=== PATIENT | female | born 1985 | race Caucasian/White ===

== ENCOUNTER 2024-08-09 08:20 | Outpatient (RCR) | payer BC, SELFPAY ==
--- NOTE | 2024-08-09 09:18 | PTOPEVAL1 ---
Assessment and note entered by Justice Thomson Evaluation Information Assessment Status Evaluation ICD-10 Condition Codes (PT) Pain in left knee M25.562 Onset 06/22/24 Subjective Information Pt. reports that she injured the left knee on . She reports that she was bowling that evening and noticed slight pain. She reports that she woke the next morning and noticed that the left knee was swollen. She underwent MRI which revealed a cartilage injury in the left knee. She states that the ortho suggested starting with PT and she will revisit following PT. She reports that pain is increased with bending, squatting and walking. She reports stairs are also difficulty. She states that she works from home and can continue to work despite her pain. she states that pain will increase at night on occasion. She states that she is placing a pillow under the knee at night for comfort on occasion. She reports that her goal for therapy is to reduce pain and walk normal. Reported Pain Level Pain Score 5: Self Report Assessment PT Clinical Summary Pt. is a 39 year old female who enters the clinic with left knee pain due to interarticular damage. She presents with decreased ROM , impaired strength, impaired gait and functional decline. Continued skilled PT is indicated in order to improve these areas to allow the pt. to be able to achieve her goal of decreased pain and normal ambulation. Plan of Care Interventions Electrical Stimulation,Gait Training,Hot Pack/Cold Pack,Manual Therapy,Neuro Re-education,Patient/ Caregiver Educati,Therapeutic Activities, Therapeutic Exercise PT Services Indicated Yes Treatment Frequency and 2x/week x 10 visits Duration These treatments will address the objective and functional deficits as defined above. The patient will be advanced safely and appropriately in order for the patient to progress towards his/her prior level of function. Additional exercises will be introduced and as well as a comprehensive home exercise program upon discharge, if needed, ?to ensure carryover of functional gains achieved in the clinic. This treatment plan has been reviewed and agreement upon by the patient.
--- NOTE | 2024-08-09 09:18 | OPREHPOC ---
Outpatient Therapy Plan of Care This is a Multidisciplinary Plan of Care that may contain components documented by all disciplines (PT, OT, and ST.) PT Problem 1 PT Problem #1 Knowledge Deficit PT Goal 1 Goal / Goal Update Pt. will be independent with a HEP addressing ROM gnosticist. Target Visit 2 PT Problem 2 PT Problem #2 Impaired Range of Motion PT Goal 1 Goal / Goal Update Pt. will achieve 0-130 degrees right knee active ROM Target Visit 10 PT Problem 3 PT Problem #3 Impaired Gait PT Goal 1 Goal / Goal Update Pt. will be able to navigate steps with reciprocal pattern Pt. will demonstrate full knee extension during heel strike with equal left and right stance time Target Visit 10 PT Problem 4 PT Problem #4 Impaired Strength PT Goal 1 Goal / Goal Update Pt. will present with 5/5 gross l.e. strength Target Visit 10 PT Problem 5 PT Problem #5 Impaired Functional Mobil PT Goal 1 Goal / Goal Update Pt. will report being able to walk through the community without deviation and 1/10 pain at worst for 1-2 hour duration. Target Visit 10
--- NOTE | 2024-09-27 07:45 | PCPTNOTE ---
Mrs. Jay attended a total of 4 treatment sessions. She has failed to return to the clinic at this time and will be discharged from our care.
== END 2024-08-16 08:45 | disposition home or self-care (01) ==
LOC: CHSPT 08:20
DX: S89.92XD Unspecified injury of left lower leg, subsequent encounter (principal); M23.92 Unspecified internal derangement of left knee; M25.462 Effusion, left knee
CPT/HCPCS: 97014; 97110; 97161; G0283

== ENCOUNTER 2024-10-04 08:47 | Outpatient (RCR) | payer BC, SELFPAY ==
--- NOTE | 2024-10-04 08:32 | PTOPEVAL1 ---
Assessment and note entered by Justice Thomson Evaluation Information Assessment Status Evaluation Diagnosis s/p left knee arthroscopy ICD-10 Condition Codes (PT) Pain in left knee M25.562 Onset 10/02/24 Subjective Information Pt. reports that she underwent knee arthroscopy on 10/02/24. She states that she is not using an AD . She states that she has soreness since surgery. She reports that she was active doing things around the house yesterday. She states that she has not been doing any exercise. Pt. reports that she works from home and most work is done from her desk. She reports that her goal is to regain normal knee mobility and to be able to stand for longer periods of time. Reported Pain Level Pain Score 5: Self Report Assessment PT Clinical Summary Pt. is a 39 year old female 2 days post left knee arthroscopy. She presents with impaired gait, impaired left knee ROM, impaired l.e. strength, edema and pain on this date. Continued skilled PT is indicated in order to improve these areas to allow the pt. to be able to return to normal IADL performance without limitation. Plan of Care Interventions Electrical Stimulation,Gait Training,Hot Pack/Cold Pack,Manual Therapy,Neuro Re-education,Patient/ Caregiver Education,Therapeutic Activities, Therapeutic Exercise,Self-Care/Home Management Other Interventions vasopneumatic compression PT Services Indicated Yes Treatment Frequency and 2x/week x 10 visits Duration These treatments will address the objective and functional deficits as defined above. The patient will be advanced safely and appropriately in order for the patient to progress towards his/her prior level of function. Additional exercises will be introduced and as well as a comprehensive home exercise program upon discharge, if needed, ?to ensure carryover of functional gains achieved in the clinic. This treatment plan has been reviewed and agreement upon by the patient.
--- NOTE | 2024-10-04 08:32 | OPREHPOC ---
Outpatient Therapy Plan of Care This is a Multidisciplinary Plan of Care that may contain components documented by all disciplines (PT, OT, and ST.) PT Problem 1 PT Problem #1 Knowledge Deficit PT Goal 1 Goal / Goal Update Pt. will be independent with a HEP addressing mobility tenriism at the left knee Target Visit 2 PT Problem 2 PT Problem #2 Edema PT Goal 1 Goal / Goal Update Pt. will present with girth measurements at the left knee joint line to 42cm to improve ROM Target Visit 5 PT Problem 3 PT Problem #3 Impaired Range of Motion PT Goal 1 Goal / Goal Update Pt. will demonstrate 0-130 degrees left knee active ROM Target Visit 10 PT Problem 4 PT Problem #4 Impaired Gait PT Goal 1 Goal / Goal Update Pt. will ambulate over level surface without deviation Pt. will navigate steps with reciprocal pattern Target Visit 10 PT Problem 5 PT Problem #5 Impaired Strength PT Goal 1 Goal / Goal Update Pt. will present with 5/5 gross left l.e. strength Target Visit 10
--- NOTE | 2024-10-06 13:11 | PCPTNOTE ---
Patient called & cancelled scheduled appointment this date due to [illness. ]
--- NOTE | 2024-10-13 09:14 | PCPTNOTE ---
I reviewed the License Pending Therapist's documentation and agree with the findings.
--- NOTE | 2024-11-16 09:33 | OPREHPOC ---
Outpatient Therapy Plan of Care This is a Multidisciplinary Plan of Care that may contain components documented by all disciplines (PT, OT, and ST.) PT Problem 1 PT Problem #1 Knowledge Deficit PT Goal 1 Goal / Goal Update Pt. will be independent with a HEP addressing mobility roman catholic at the left knee Target Visit 2 Progress Met PT Problem 2 PT Problem #2 Edema PT Goal 1 Goal / Goal Update Pt. will present with girth measurements at the left knee joint line to 42cm to improve ROM Target Visit 5 PT Problem 3 PT Problem #3 Impaired Range of Motion PT Goal 1 Goal / Goal Update Pt. will demonstrate 0-130 degrees left knee active ROM Target Visit 10 Progress Met PT Problem 4 PT Problem #4 Impaired Gait PT Goal 1 Goal / Goal Update Pt. will ambulate over level surface without deviation Pt. will navigate steps with reciprocal pattern Target Visit 10 Progress Met PT Problem 5 PT Problem #5 Impaired Strength PT Goal 1 Goal / Goal Update Pt. will present with 5/5 gross left l.e. strength Target Visit 10 Progress Met
--- NOTE | 2024-11-16 09:33 | PTOPDC ---
Assessment and note entered by JT File, PT Evaluation Information Assessment Status Discharge Diagnosis s/p left knee arthroscopy ICD-10 Condition Codes (PT) Pain in left knee M25.562 Onset 10/02/24 Subjective Information patient reports she feels Great today. she reports she has felt well the last few weeks and has no pain. she reports she is walking up and down steps normally, but does focus on taking her time. Reported Pain Level Pain Score 0: Self Report Assessment PT Clinical Summary mrs. lima is a 39 yo woman who presents to skilled PT services for her 10th skilled PT visit. she has met all goals for skilled PT today, and is ready to DC therapy. she is compliant with her HEP, and plans to continue to be compliant with it after DC from therapy today. Plan of Care PT Services Indicated Yes
== END 2024-11-16 11:33 | disposition home or self-care (01) ==
LOC: CHSPT 08:47
PROVIDERS: Visit Provider Orthopaedic Surgery
DX: Z48.89 Encounter for other specified surgical aftercare (principal); Z98.890 Other specified postprocedural states
CPT/HCPCS: 97016; 97110; 97161; 97530

== ENCOUNTER 2024-10-04 21:18 | Emergency (ER) | payer BC, SELFPAY ==
--- NOTE | ~2024-10-04 | XR_ITS ---
EXAMINATION: XR chest 1V portable DATE: 10/04/2024 22:02 INDICATION: Chest pain. TECHNIQUE: A single frontal view of the chest was obtained. COMPARISON: None. FINDINGS: There are airspace opacities in left lower lung zone. No pleural effusion or pneumothorax. The heart size is normal. IMPRESSION: 1. Airspace opacities in left lower lung zone, consistent with atelectasis versus pneumonia. Reviewed, dictated and finalized at location A. H REPAIR TECHNICIAN IMPRESSION: 1. Airspace opacities in left lower lung zone, consistent with atelectasis vers us pneumonia.
--- NOTE | ~2024-10-04 | CT_ITS ---
EXAMINATION: CTA chest PE protocol DATE: 10/04/2024 23:18 INDICATION: Chest pain. Shortness of breath. TECHNIQUE: Computed tomography angiography (CTA) of the chest was performed with 100 mL Omnipaque-350 intravenous contrast timed to evaluate the pulmonary arteries. Coronal maximum intensity projection 3D-reconstructions were created by the technologist. Automated exposure control and iterative reconst ruction technique were employed. The dose-length product was 560.00 mGy-cm. COMPARISON: Chest single view 10/04/2024 FINDINGS: The lungs demonstrate mild atelectasis. No pleural effusion. The heart size is normal. No p ericardial effusion. There is no pulmonary embolus. The gallbladder is distended, likely secondary to fasting. There is mild thoracic spondylosis. IMPRESSION: 1. No pulmonary embolus. Reviewed, dictated and finalized at location A. CTOR SUPPLY CHAIN IMPRESSION: 1. No pulmonary embolus.
[2024-10-04 21:18] VITALS: BP 130/82; PULSE 91; RESP 16; TEMP 36.7; O2SAT 97
--- NOTE | 2024-10-04 21:22 | ED.SOB ---
HPI - SOB/Dyspnea General Chief Complaint: Shortness of Breath/Dyspnea Stated Complaint: cough, difficulty breathing Time Seen by Provider: 10/04/24 21:21 Source: patient and family Mode of arrival: ambulatory Limitations: no limitations History of Present Illness HPI Narrative: 39-year-old female, nonsmoker with arthroscopic knee surgery 2 days ago for meniscus tear presents to the ED with -- fever with a T-max of 103? -- anterior chest pain which radiates to the back. pain is rated as 5/10. It gets worse with deep breathing and coughing. -- Cough which is nonproductive -- shortness of breath which is present at rest and with activity -- the left knee where she had arthroscopy does not have any swelling / erythema/ drainage. Nearly normal range of motion. she had physical therapy this morning without any difficulty. MD elicited complaint: shortness of breath and cough Onset (ago): day(s) ( Two days) Timing: constant Exacerbating factors: nothing Relieving factors: nothing Associated symptoms: chest pain, pain with inspiration, fever and cough Treatment prior to arrival: none Related Data Home Medications ?Medication ?Instructions ?Recorded ?Confirmed ?Last Taken ?Type aspirin 81 mg tablet,delayed 81 mg PO DAILY 10/04/24 10/04/24 Unknown History release atorvastatin 10 mg tablet 10 mg PO DAILY 10/04/24 10/04/24 Unknown History atovaquone 250 mg-proguanil 100 mg 1 tablet PO DAILY 10/04/24 10/04/24 Unknown History tablet eluxadoline 100 mg tablet (Viberzi) 100 mg PO DAILY 10/04/24 10/04/24 Unknown History hydrocodone 5 mg-acetaminophen 325 1 tablet PO PRN post op pain 10/04/24 10/04/24 Unknown History mg tablet norgestimate 0.25 mg-ethinyl 1 tablet PO DAILY 10/04/24 10/04/24 Unknown History estradiol 35 mcg tablet (Ameena) Allergies Allergy/AdvReac Type Severity Reaction Status Date / Time No Known Allergies Allergy Verified 10/04/24 22:13 Review of Systems Review of Systems: All systems reviewed & are unremarkable except as noted in HPI and below Constitutional: Constitutional: Reports as per HPI, Reports no additional constitutional complaints and Reports fever(s) Eyes: Eyes: Reports as per HPI and Reports no additional eye complaints ENT: Reports system reviewed and no additional complaints, except as documented and Reports as per HPI Cardiovascular: Cardiovascular: Reports as per HPI and Reports no additional cardiovascular complaints Respiratory: Respiratory: Reports as per HPI, Reports no additional respiratory complaints, Reports chest congestion, Reports cough and Reports dyspnea Gastrointestinal: Gastrointestinal: Reports as per HPI and Reports no additional gastrointestinal complaints Genitourinary: Genitourinary: Reports no additional female genitourinary complaints and Reports as per HPI Musculoskeletal: Musculoskeletal: Reports no additional musculoskeletal complaints and Reports as per HPI Comments: left knee pain today she had recent arthroscopic surgery Integumentary/Breasts: Skin/Breast: Reports system reviewed and no additional complaints, except as docu and Reports as per HPI Neurologic: Reports system reviewed and no additional complaints, except as documented and Reports as per HPI Psychiatric: Psychiatric: Reports no additional psychiatric complaints and Reports as per HPI Endocrine: Endocrine: Reports no additional endocrine complaints and Reports as per HPI Hematologic/Lymphatic: Hematologic/Lymphatic: Reports no additional hematologic/lymphatic complaints and Reports as per HPI Allergic/Immunologic: Allergic/Immunologic: Reports no additional allergic/immunologic complaints and Reports as per HPI [facility] Past Medical History Medical History (Updated 10/05/24 @ 00:16 by Samuel Lang MD) Tear meniscus knee Surgical History Surgical History (Updated 10/04/24 @ 21:37 by Samuel Lang MD) S/P arthroscopic surgery of left knee Exam Narrative: afebrile. Const: General: no acute distress Nutritional Appearance: well nourished Orientation/consciousness: patient oriented x3 Limitations: no limitations HENMT: Head: normal to inspection Ears: external ears normal Face/Nose/Sinus: Normal external nose present Face and sinus: normal facial exam Mouth: Yes Normal oral and palatal mucosa present Throat: posterior oropharynx normal Eyes: Conjunctivae: conjunctivae normal Pupils: Equal, round and reactive pupils present EOM: EOMs intact bilaterally Direct Ophthalmoscopy: no photophobia Neck: Neck: normal visual inspection, no lymphadenopathy and no meningeal signs Chest: Chest palpation & inspection: normal inspection of the chest Resp: Effort & Inspection: normal respiratory effort Auscultation: diminished lung sounds Cardio: Rate: regular rate Rhythm: regular rhythm GI: GI Palp: Yes Soft to palpation Other: No tenderness/ rigidity /rebound. : General: Yes no CVA tenderness Back/Spine/Pelvis: Back: no CVA tenderness Cervical Spine: collar present Skin: General skin exam: normal color Rashes: no rashes Wounds: no wounds Neuro: General: patient oriented x3, moves all extremities, no meningeal signs, no focal motor deficits and CN's II-XI intact bilaterally Cranial nerves: Yes Nystagmus not present Speech: normal speech Gait exam (Neuro): Normal gait present Extrem: Other: Left knee-- mild swelling. Decreased range of motion. No tenderness. Psych: Mental Status: mental status grossly normal Affect: normal affect Attitude: cooperative Course Course Emergency Course: Post arthroscopic fever-- patient had fever at home but currently afebrile. Noted to have a white cell count of 9.7 with neutrophils of 76%. Patient has been cultured. substernal chest pain radiating to the back made worse by coughing and deep breathing-- CTA of the chest did not show any evidence of PE. shortness of breath-- Patient tested positive for influenza A. Chest x-ray revealed questionable left lower lobe infiltrate. CT of the chest did not show any infiltrates. Will treat with Augmentin and Tamiflu patient had a negative test test 2 days ago before she had her arthroscopic surgery. Vital Signs Vital signs: Vital Signs Temperature 36.7 C 10/04/24 21:18 Pulse Rate 91 10/04/24 21:18 Respiratory Rate 16 10/04/24 21:18 Blood Pressure 130/82 10/04/24 21:18 Pulse Oximetry 97 10/04/24 21:18 Oxygen Delivery Room Air 10/04/24 21:18 Temperature 37.1 C 10/05/24 00:45 Pulse Rate 81 10/05/24 00:45 Respiratory Rate 16 10/05/24 00:45 Blood Pressure 144/77 H 10/05/24 00:45 Pulse Oximetry 100 10/05/24 00:45 Oxygen Delivery Room Air 10/05/24 00:45 MDM - SOB/Dyspnea MDM Narrative Medical decision making narrative: post arthroscopic surgery fever-- patient has been febrile. Patient has been cultured. Left knee has nearly normal range of motion without any tenderness. Fevers/chest pain /shortness of breath-- CTA negative for PE. Questionable left lower lobe infiltrate. The patient tested positive for influenza. Will treat with Augmentin and Tamiflu Differential Diagnosis Differential diagnosis: Likely congestive heart failure and pulmonary embolism Lab Data Attestation: I reviewed the patient's lab results. 10/04/24 21:47 10/04/24 21:47 Labs: Lab Results 10/04/24 Range/Units 21:47 WBC 9.7 (4.8-10.8) K/mm3 RBC 4.30 (4.20-5.40) M/mm3 Hgb 12.1 (12.0-15.0) g/dL Hct 36.5 (35.0-49.0) % MCV 84.9 (78.0-102.0) fL MCH 28.1 (27.0-31.0) pg MCHC 33.2 (32-36) g/dL RDW 13.9 (11.6-14.4) % Plt Count 271 (150-420) K/mm3 MPV 9.4 (9.2-11.8) fl Immature Gran % (Auto) 0.4 H (0.0-0.0) % Neut % (Auto) 76.4 H (50.0-70.0) % Lymph % (Auto) 16.7 L (18.0-42.0) % [place] % (Auto) 6.1 (2.0-11.0) % Eos % (Auto) 0.3 L (1.0-6.0) % Baso % (Auto) 0.1 (0.0-1.0) % Lymph # (Auto) 1.62 (1.10-4.50) K/mm3 [place] # (Auto) 0.59 (0.10-0.90) K/mm3 Eos # (Auto) 0.03 (0.02-0.50) K/mm3 Baso # (Auto) 0.01 (0.00-0.10) K/mm3 Abs Immat Gran (auto) 0.04 H (0.00-0.00) K/mm3 Absolute Neuts (auto) 7.43 H (1.70-7.20) K/mm3 Absolute Nucleated RBC 0.00 (0.00-0.00) K/mm3 Nucleated RBC % 0.0 (0-0.0) % Sodium 136 (136-145) mmol/L Potassium 3.3 L (3.5-5.1) mmol/L Chloride 99 (98-108) mmol/L Carbon Dioxide 25 (21-32) mmol/L Anion Gap 12 (4-12) mmol/L BUN 8 (7-18) mg/dL Creatinine 0.85 (0.55-1.02) mg/dL Estim Creat Clear Calc 96 ml/min Estimated GFR > 60 (59 - ) Glucose 105 H (70-99) mg/dL Calculated Osmolality 280 L (285-295) mOsm/kg Lactic Acid 1.0 (0.4-2.0) mmol/L Calcium 8.6 (8.5-10.1) mg/dL Total Bilirubin 0.4 (0.00-1.00) mg/dL AST 21 (15-37) U/L ALT 27 (14-59) U/L Alkaline Phosphatase 125 H (46-116) U/L Troponin I 9.5 (0.00-60.4) ng/L NT-Pro-B Natriuret Pep 346 H (0-125) pg/mL Total Protein 7.2 (6.4-8.2) g/dL Albumin 3.0 L (3.4-5.0) g/dL Influenza A (RT-PCR) Positive A (Negative) Influenza B (RT-PCR) Negative (Negative) RSV (RT-PCR) Negative (Negative) SARS-CoV-2 RNA (RT-PCR) Negative (Negative) ECG Data EKG #1: ECG completion date: 10/04/24 ECG completion time: 19:20 Interpretation: Normal sinus rhythm. Normal axis. No ST -T-wave changes noted. Discharge Plan Discharge Clinical Impression: Influenza Pneumonia Qualifiers: Pneumonia type: due to unspecified organism Laterality: left Lung location: lower lobe of lung Qualified Code(s): J18.9 - Pneumonia, unspecified organism Patient Disposition: Home, Self-Care Condition: Stable Instructions: Antibiotic Form, Influenza (ED), Bacterial Pneumonia (ED) Patient Language: Bulgarian Prescriptions: New amoxicillin-pot clavulanate 875-125 mg tablet 1 tablet PO Q12H Qty: 14 0RF No Action norgestimate-ethinyl estradiol [Ameena] 0.25-35 mg-mcg tablet 1 tablet PO DAILY atorvastatin 10 mg tablet 10 mg PO DAILY hydrocodone-acetaminophen 5-325 mg tablet 1 tablet PO PRN atovaquone-proguanil 250-100 mg tablet 1 tablet PO DAILY aspirin 81 mg tablet,delayed release (DR/EC) 81 mg PO DAILY Viberzi 100 mg tablet 100 mg PO DAILY Follow-up/Referrals: UNKNOWN,DOCTOR [Non-Staff] - Time of Disposition: 00:16
--- NOTE | 2024-10-04 21:31 | ECG_ITS ---
Test Date: 2024-10-04 21:57:16 Measurements Intervals [place] Rate: 75 P: 18 FL: 180 QRS: -11 QRSD: 93 T: 5 QT: 415 QTc: 464 Interpretive Statements SINUS RHYTHM No previous ECG available for comparison Electronically Signed On 10-05-2024 15:54:50 MECHANICAL STRIPER by Demond Barajas M.D.
[2024-10-04 21:52] LABS: Basophils Absolute Auto 0.01 K/mm3 (0.00-0.10); Basophils Percent Auto 0.1 % (0.0-1.0); Eosinophils Absolute Auto 0.03 K/mm3 (0.02-0.50); Eosinophils Percent Auto 0.3 % (1.0-6.0); Hematocrit 36.5 % (35.0-49.0); Hemoglobin 12.1 g/dL (12.0-15.0); Immature Granulocyte Absolute 0.04 K/mm3 (0.00-0.00); Immature Granulocyte Percent A 0.4 % (0.0-0.0); Lymphocytes Absolute Auto 1.62 K/mm3 (1.10-4.50); Lymphocytes Percent Auto 16.7 % (18.0-42.0); Mean Corpuscular HGB Conc 33.2 g/dL (32-36); Mean Corpuscular Hemoglobin 28.1 pg (27.0-31.0); Mean Corpuscular Volume 84.9 fL (78.0-102.0); Mean Platelet Volume 9.4 fl (9.2-11.8); Monocytes Absolute Auto 0.59 K/mm3 (0.10-0.90); Monocytes Percent Auto 6.1 % (2.0-11.0); Neutrophils Absolute Auto 7.43 K/mm3 (1.70-7.20); Neutrophils Percent Auto 76.4 % (50.0-70.0); Platelet Count Result 271 K/mm3 (150-420); Red Cell Distribution Width 13.9 % (11.6-14.4); White Blood Count 9.7 K/mm3 (4.8-10.8)
[2024-10-04 22:11] LABS: Alanine Aminotransferase 27 U/L (14-59); Alkaline Phosphatase 125 U/L (46-116); Anion Gap 12 mmol/L (4-12); Aspartate Amino Transferase 21 U/L (15-37); Bilirubin,Total 0.4 mg/dL (0.00-1.00); Blood Urea Nitrogen 8 mg/dL (7-18); Calcium 8.6 mg/dL (8.5-10.1); Carbon Dioxide 25 mmol/L (21-32); Chloride 99 mmol/L (98-108); Estimated CRCL calculation 96 ml/min; Estimated Glomerular Filt Rate > 60; Glucose 105 mg/dL (70-99); Osmolality Calculated 280 mOsm/kg (285-295); Potassium 3.3 mmol/L (3.5-5.1); Sodium 136 mmol/L (136-145); Total Protein 7.2 g/dL (6.4-8.2); Troponin I 9.5 ng/L (0.00-60.4)
[2024-10-04 22:28] LABS: SARS-CoV-2 RNA PCR Negative (Negative)
[2024-10-04] MEDS: LACTATED RINGERS 1,000 ML 999 ML IV CONT (22:30)
[2024-10-04 22:31] LABS: NT Pro B Type Natriuretic Pept 346 pg/mL (0-125)
[2024-10-04 22:32] LABS: Influenza A QL RT-PCR Positive (Negative); Influenza B QL RT-PCR Negative (Negative); RSV RNA, RT-PCR Negative (Negative)
--- NOTE | 2024-10-04 22:45 | PC.NURSE ---
UA collected and given to lab 2132
[2024-10-04] MEDS: OSELTAMIVIR PHOSPHATE 75 MG CAPSULE PO (23:04)
[2024-10-04] MEDS: AZITHROMYCIN 250 MG TABLET 500 MG PO (23:04)
--- NOTE | 2024-10-05 00:40 | PC.NURSE ---
ERP aware of pt's blood pressure. No new orders.
[2024-10-05 00:45] VITALS: BP 144/77; PULSE 81; RESP 16; TEMP 37.1; O2SAT 100
--- NOTE | 2024-10-07 12:59 | PC.NURSE ---
PRELIMINARY BLOOD CULTURE; NO GROWTH TO DATE
== END 2024-10-05 00:45 | disposition home or self-care (01) ==
PROVIDERS: Emergency Provider Internal Medicine Critical Care Medicine; PCP Internal Medicine
DX: J11.1 Influenza due to unidentified influenza virus with other respiratory manifestations (principal); J18.9 Pneumonia, unspecified organism; Z79.899 Other long term (current) drug therapy; Z79.891 Long term (current) use of opiate analgesic; Z79.82 Long term (current) use of aspirin; Z20.822 Contact with and (suspected) exposure to COVID-19
CPT/HCPCS: 36415; 71045; 71275; 80053; 83605; 83880; 84484; 85025; 87040; 87637; 93005; 96365; 99284; A9270; J0696; J7120; Q9967